=== PATIENT | female | born 1940 | race Caucasian/White ===

== ENCOUNTER 2018-09-06 01:19 | Outpatient (CLI) | payer SELFPAY ==
[2018-09-06 08:44] LABS: HEMOGLOBIN A1C 5.6 % (4.5-6.2)
[2018-09-06 08:49] LABS: CHOL/HDL RATIO 4.36 (0.00-4.99)
== END 2018-09-06 23:59 | disposition home or self-care (01) ==
LOC: HW HEART 01:19
DX: Z13.6 Encounter for screening for cardiovascular disorders (principal)
CPT/HCPCS: 36415

== ENCOUNTER 2020-04-08 14:29 | Emergency (ER) | payer MEDICARE, BC ==
[~2020-04-08] VITALS: Ht 154.9 cm; Wt 58.0 kg
[2020-04-08 15:23] LABS: BASOPHILS # (AUTO) 0.1 X10'3 (0-0.2); BASOPHILS % (AUTO) 1.4 % (0-1); EOSINOPHILS # (AUTO) 0.1 X10'3 (0-0.9); EOSINOPHILS % (AUTO) 2.6 % (0-6); HEMATOCRIT 38.9 % (35.0-45.0); HEMOGLOBIN 13.4 g/dl (12.0-16.0); LYMPHOCYTES # (AUTO) 1.9 X10'3 (1.1-4.8); LYMPHOCYTES % (AUTO) 41.1 % (21-51); MEAN CORPUSCULAR HGB CONC 34.4 g/dL (33.0-36.5); MEAN CORPUSCULAR VOLUME 101.6 FL (78-98); MEAN PLATELET VOLUME 8.9 FL (7.4-10.4); MONOCYTES # (AUTO) 0.4 X10'3 (0-0.9); MONOCYTES % (AUTO) 8.6 % (2-12); NEUTROPHILS # (AUTO) 2.2 X10'3 (1.8-7.7); NEUTROPHILS % (AUTO) 46.3 % (42-75); PLATELET COUNT 199 X10'3 (140-440); RED BLOOD COUNT 3.83 X10'6 (4.20-5.60); RED CELL DISTRIBUTION WIDTH 12.5 % (11.5-14.5); WHITE BLOOD COUNT 4.7 X10'3 (4.5-11.0)
[2020-04-08 15:28] LABS: TOTAL CARBON DIOXIDE 28.8 MMOL/L (24-32)
[2020-04-08 16:01] LABS: ALANINE AMINOTRANSFERASE 24 U/L (12-78); ALBUMIN 3.4 G/DL (3.4-5.0); ALBUMIN/GLOBULIN RATIO 1.2 (1.1-1.5); ALKALINE PHOSPHATASE 94 IU/L (46-116); ANION GAP 6 (8-16); ASPARTATE AMINO TRANSFERASE 22 U/L (10-37); BILIRUBIN,TOTAL 0.2 MG/DL (0.1-1.0); BLOOD UREA NITROGEN 17 MG/DL (7-18); BUN/CREATININE RATIO 17.9 (6.6-38.0); CALCIUM 8.6 MG/DL (8.5-10.1); CHLORIDE 106 MMOL/L (99-107); CREATININE 0.95 MG/DL (0.40-0.90); GLUCOSE 156 MG/DL (70-104); MAGNESIUM 2.1 MG/DL (1.5-2.4); SODIUM 141 MMOL/L (135-145); TOTAL PROTEIN 6.2 G/DL (6.4-8.2); eGFR 57 ML/MIN
[2020-04-08 16:19] VITALS: BP 119/69
== END 2020-04-08 16:22 | disposition home or self-care (01) ==
LOC: ER 14:30
DX: R55 Syncope and collapse (principal); R53.83 Other fatigue; R51 Headache; Z72.89 Other problems related to lifestyle; Z88.2 Allergy status to sulfonamides
CPT/HCPCS: 36415; 71045; 80053; 83735; 84484; 85025; 93005; 99285

== ENCOUNTER 2021-08-25 12:48 | Outpatient (CLI) | payer MEDICARE, BC | END 2021-08-25 23:59 | disposition home or self-care (01) | LOC: CARD DIAG 12:48 | PROVIDERS: ATTEND Nurse Practitioner | DX: I08.3 Combined rheumatic disorders of mitral, aortic and tricuspid valves (principal) | CPT/HCPCS: 93306 ==